=== PATIENT | female | born 1985 | race Caucasian/White ===

== ENCOUNTER 2018-02-22 12:38 | Emergency (ER) | payer MEDICAID ==
[~2018-02-22] VITALS: Ht 165.1 cm; Wt 83.0 kg
[2018-02-22 12:51] VITALS: Ht 165.1 cm; Wt 83.0 kg
[2018-02-22 16:18] VITALS: BP 130/72
== END 2018-02-22 16:18 | disposition home or self-care (01) ==
LOC: ED 12:38
DX: R06.02 Shortness of breath (principal); R51 Headache; R11.2 Nausea with vomiting, unspecified; R07.89 Other chest pain
CPT/HCPCS: J1885; J7030; J7512; J7613; J7644